=== PATIENT | female | born 1995 | race Caucasian/White ===

== ENCOUNTER 2022-10-04 05:39 | Outpatient (CLI) | payer BC ==
[~2022-10-04] VITALS: Ht 162.6 cm; Wt 63.6 kg
[2022-10-04] MEDS ORDERED: CITA10TA12 PO (13:14)
[2022-10-04] MEDS ORDERED: NORE0.3520 PO (13:14)
[2022-10-04] MEDS ORDERED: LORA10TA76 PO (13:14)
== END 2022-10-04 13:33 ==
LOC: PREOP 05:39
PROVIDERS: ATTEND Podiatrist Foot & Ankle Surgery
DX: Z01.818 Encounter for other preprocedural examination (principal)

== ENCOUNTER 2022-10-11 06:14 | Day surgery (SDC) | payer BC ==
[~2022-10-11] VITALS: Ht 162.6 cm; Wt 63.6 kg
[2022-10-11] VITALS (10 sets, daily range): BP systolic 101–141; BP diastolic 63–86
[~2022-10-11 06:14] MED LIST: CITA10TA12 PO; LORA10TA76 PO; NORE0.3520 PO
[2022-10-11] MEDS ORDERED: LACTATED RINGERS 1,000 ML IV PRN (06:30)
[2022-10-11] MEDS ORDERED: ceFAZolin INJECTION 1,000 MG in NS (IVPB) 50 ML IV ONE (06:30)
[2022-10-11] MEDS ORDERED: MIDAZOLAM 2 MG/2 ML (VERSED) VIAL ONE (07:04)
[2022-10-11] MEDS ORDERED: fentaNYL INJ 100 MCG/2 ML AMP ONE (07:04)
[2022-10-11] MEDS ORDERED: SEVOFLURANE (ULTANE) 15 ML INHAL SOLN ONE ×4 (07:04→09:18)
[2022-10-11] MEDS ORDERED: ONDANSETRON 4 MG/2 ML (SDV) Z0FRAN ONE ×2 (07:04→07:05)
[2022-10-11] MEDS ORDERED: proPOfol 200 MG/20 ML (DIPRIVAN) VIAL IV ONE (07:04)
[2022-10-11] MEDS ORDERED: LIDOCAINE PF 2% 5 ML (XYLOCAINE) VIAL ONE (07:04)
[2022-10-11] MEDS ORDERED: BUPIVACAINE 0.5% 30 ML (SENSORCAINE) VIAL ONE (07:16)
[2022-10-11] MEDS ORDERED: LIDOCAINE 1% INJ 20 ML VIAL ONE (07:16)
--- NOTE | 2022-10-11 07:51 | Progress Note-Pre Operative ---
Pre-Operative Progress Note Date of Available H&P: Oct 11, 2022 Date H&P Reviewed: Oct 11, 2022 Time H&P Reviewed: 07:45 Pre-Operative Diagnosis: Hallux Valgus, right WILLY BRAXTON DPM Oct 11, 2022 07:51
[2022-10-11] MEDS ORDERED: morphine INJ 10 MG/ML 1ML (SYR OR VIAL) IVP ONE (09:30)
[2022-10-11] MEDS ORDERED: PROMETHAZINE INJ 25 MG/ML (PHENERGAN) AMP IVP ONE (09:30)
[2022-10-11] MEDS ORDERED: ONDANSETRON 4 MG/2 ML (SDV) Z0FRAN IVP PRN (09:30)
[2022-10-11] MEDS ORDERED: MEPERIDINE (DEMEROL) INJ 50 MG/ML IVP ONE (09:30)
--- NOTE | 2022-10-11 09:30 | Anesthesia-General Post-Op ---
General Patient Condition Mental Status/LOC: Same as Preop Cardiovascular: Satisfactory Nausea/Vomiting: Absent Respiratory: Satisfactory Pain: Controlled Complications: Absent Post Op Complications Complications None Follow Up Care/Instructions Patient Instructions None needed. Anesthesia/Patient Condition Patient Condition Patient is doing well, no complaints, stable vital signs, no apparent adverse anesthesia problems. No complications reported per nursing. EMILY HERNANDEZ CRNA Oct 11, 2022 09:30
--- NOTE | 2022-10-11 09:32 | Progress Note-Post Operative ---
Post-Operative Progess Note Surgeon (s)/Extrusion Press Adjuster (s) Surgeon WILLY BRAXTON DPM Extrusion Press Adjuster: none Pre-Operative Diagnosis Hallux Valgus, right Post-Operative Diagnosis same Procedure & Operative Findings Date of Procedure 10/11/22 Procedure Performed/Findings Phil-Eugenio Bunionectomy right Anesthesia Type General Estimated Blood Loss Estimated blood loss (mL): Minimal Specimens/Packing Specimens Removed None WILLY BRAXTON DPM Oct 11, 2022 09:32
[2022-10-11] MEDS ORDERED: CEPH500C PO (09:37)
[2022-10-11] MEDS ORDERED: ACHD5005 PO (09:37)
[2022-10-11] MEDS ORDERED: HYDROcodone/APAP 5 MG/325 MG (LORTAB) TAB PO PRN (09:45)
[2022-10-11] MEDS ORDERED: LACTATED RINGERS 1,000 ML IV SCH (09:45)
--- NOTE | 2022-10-11 11:00 | Diagnostic Imaging Report ---
INDICATION: Post operative evaluation. COMPARISON: None available. TECHNIQUE: Frontal and lateral radiographs of the right foot were obtained dated 10/11/2022. FINDINGS: Post surgical changes of an osteotomy involving the distal right 1st metatarsal are noted with additional post surgical changes involving the 1st MTP joint. Post surgical soft tissue gas is present. No suspicious radiopaque foreign body. No acute fracture or dislocation. No destructive osseous process. Linear sclerosis within the posterior calcaneus is felt to reflect a bone island. IMPRESSION: Post surgical changes involving the 1st ray as described above without suspicious radiopaque foreign body or acute osseous abnormality. See surgical note for full details. Dictated by: Dictated on workstation # [id number]
--- NOTE | 2022-10-11 11:22 | Physical Therapy Progress Note ---
Therapy Progress Note Patient required Crutch issue only due to previous knowledge of crutch use. Patient was observed ambulating, NWB right LE without difficulty. No skilled PT indicated. 1 visit YESI MCCARTHY PT Oct 11, 2022 11:22
--- NOTE | 2022-10-11 19:19 | OPERATIVE REPORT ---
DATE OF SERVICE: 10/11/2022 SURGEON: Willy Braxton DPM. PREOPERATIVE DIAGNOSIS: Hallux abductovalgus metatarsal primus varus, right foot. POSTOPERATIVE DIAGNOSIS: Hallux abductovalgus metatarsal primus varus, right foot. PROCEDURES PERFORMED: Modified Phil Eugenio bunionectomy, right foot. WOUND CLASS: Clean. ANESTHESIA: General. HEMOSTASIS: Pneumatic thigh tourniquet at 250 mmHg. INDICATIONS: This 27-year-old female presents complaining of a painful bunion of the right foot. Conservative therapy has met with unsatisfactory results and the patient is agreeable to surgical intervention after risks and complications were discussed at length. No guarantees were extended to the patient and she is willing to proceed. DESCRIPTION OF PROCEDURE: The patient was brought back to the operating table and placed in a secure supine position. Appropriate timeout was performed. General anesthetic was then induced. A pneumatic thigh tourniquet was placed on the right lower extremity over several layers padding. A preoperative injection of 10 mL of 1:1 mixture of 1% Xylocaine and 0.5% Marcaine was injected in a Muro block. The right foot was then prepped and draped in normal sterile manner. The right foot was then elevated allowed to exsanguinate after which the tourniquet was inflated to 250 mmHg. Attention was then directed to the dorsal aspect of the right first metatarsophalangeal joint where a 6 cm longitudinal linear incision was created. The incision was deepened in the same plane with great care to identify and retract all vital neurovascular structures. Only necessary blood vessels were cauterized as encountered. The incision was deepened down to the capsular tissue where a longitudinal capsulotomy was performed. The capsular tissue was reflected medially and laterally exposing the hypertrophic medial eminence to the first metatarsal head, which was resected utilizing a power sagittal saw. Next, blunt dissection was carried out into the first intermetatarsal space where a lateral release was performed. A lateral capsulorrhaphy was performed sharply, after which the conjoined tendon of the adductor hallucis was released as well as the fibular sesamoidal ligament. Attention was then redirected to the medial aspect of the first metatarsal head where a Chevron type osteotomy was performed. This allowed the capital fragment to translocate laterally and was fixated in its new position with a 0.062 threaded K-wire driven from dorsal proximal to plantar distal with great care not to penetrate the articular cartilage. Attention was then directed to the proximal phalanx of the right hallux where subperiosteal dissection was carried out. A wedge of bone was resected with a power sagittal saw over the base, medial and lateral cortices held intact. Once the wedge of bone was resected, the gap was closed realigning the overall right hallux trajectory. This helped reduce the hallux valgus deformity and realign the first ray. Two [place] pilot holes were created at the dorsal medial aspect of the osteotomy after which a 28-gauge monofilament wire was passed through this area, securing the osteotomy in a closed position. The wound was flushed with copious amounts of normal saline throughout the procedure. Excellent range of motion was appreciated at the right first metatarsophalangeal joint as well as with good reduction of the hallux valgus deformity. The wound was closed in layers. A deep closure was performed with 3-0 Vicryl, superficial with 4-0 Vicryl, skin closed with 4-0 Prolene in a horizontal mattress type stitch. Postoperative injection consisted of 15 mL of 0.5% Marcaine injected in a Muro block with an additional 10 mg of dexamethasone injected into the lateral aspect of the right first metatarsophalangeal joint. Postoperative dressing consisted of thrombin-soaked Betadine-soaked Adaptic, sterile 4 x 4's, sterile Kerlix, all secured with a Coban wrap. The patient tolerated the anesthesia and procedure well and was transported from the operating room to the recovery room with vital signs stable and vascular status intact to all digits of the right foot. The patient is to be nonweightbearing on the right foot with crutches. She is to follow up in my office in 10 days period of time. She was given a prescription for Keflex as well as a Vicodin. Job ID: [id number] DocumentID: [id number] Dictated Date: 10/11/2022 09:44:58 Warehouse Production Worker Date: 10/11/2022 19:17:00 Dictated By: WILLY BRAXTON DPM
== END 2022-10-11 11:25 | disposition home or self-care (01) ==
LOC: SDC 06:14
PROVIDERS: ATTEND Podiatrist Foot & Ankle Surgery
DX: M20.11 Hallux valgus (acquired), right foot (principal); M21.171 Varus deformity, not elsewhere classified, right ankle; Z28.310 Unvaccinated for COVID-19
CPT/HCPCS: 28299; 73620; 84703; 87081; C1713